=== PATIENT | female | born 1995 | race Caucasian/White ===

== ENCOUNTER 2024-03-29 17:32 | Emergency (ER) | payer BC, SELFPAY ==
[2024-03-29 17:35] VITALS: BP 140/101
[2024-03-29 17:45] VITALS: BMI 36.8
[2024-03-29 17:52] VITALS: BP 117/86
[2024-03-29] MEDS: DILAUDID 1 MG IV (17:53)
[2024-03-29] MEDS: ZOFRAN 4 MG IV (17:53)
[2024-03-29 18:01] LABS: % Basophils 0.3 % (0-2); % Eosinophils 1.7 % (0-6); % Immature Granulocytes 0.4 % (0-0.5); % Lymphocytes 18.6 % (20.5-51.1); % Monocytes 7.7 % (1.7-9.3); % Neutrophils 71.3 % (42.2-75.2); Absolute Eosinophils 0.2 10^3/uL (0-0.7); Absolute Immature Granulocytes 0.1 10^3/uL (0-0.05); Absolute Lymphocytes 2.4 10^3/uL (1.2-3.4); Absolute Neutrophils 9.3 10^3/uL (1.4-6.5); Hematocrit 39.2 % (37.0-47.0); Hemoglobin 13.5 g/dL (12.0-16.0); Mean Corp Hgb Conc. 34.4 g/dL (33.0-37.0); Mean Corpuscular Hgb 30.7 pg (27.0-31.0); Mean Corpuscular Volume 89.1 fL (81.0-99.0); Mean Platelet Volume 10.5 fL (7.4-10.4); Nucleated Red Blood Cells % 0 %; Platelet Count 326 10^3/uL (130-400); Red Cell Dist. Width 12.1 % (11.5-14.5)
[2024-03-29 18:02] LABS: Urine Albumin Negative (Neg - Trace); Urine Bilirubin Negative (Negative); Urine Character Clear (Clear); Urine Color Yellow; Urine Glucose Negative (Negative); Urine Ketone Negative (Negative); Urine Leukocyte 1+ (Negative); Urine Nitrite Negative (Negative); Urine Occult Blood Trace (Negative); Urine Specific Gravity 1.015 (<1.030); Urine Urobilinogen Negative (Neg - 1+)
[2024-03-29 18:09] LABS: Urine Bacteria Few (Negative)
[2024-03-29 18:20] LABS: ALT (SGPT) 13 U/L (0-35); AST (SGOT) 25 U/L (14-36); Albumin 4.6 g/dl (3.5-5.0); Alkaline Phosphatase 87 U/L (38-126); Blood Urea Nitrogen 18 mg/dl (7-17); Calcium 9.9 mg/dl (8.4-10.2); Carbon Dioxide 22 mmol/L (22-30); Chloride 102 mmol/L (98-107); Estimated Creatinine Clearance 73 ml/min; Glucose 93 mg/dl (70-99); Potassium 4.1 mmol/L (3.5-5.1); Sodium 140 mmol/L (135-145); Total Bilirubin 0.2 mg/dl (0.2-1.3); Total Protein 7.6 g/dl (6.3-8.2); eGFR > 60.00
[2024-03-29 18:28] LABS: HCG, Serum Qualitative Screen Negative
--- NOTE | 2024-03-29 18:53 | ED.GENMED ---
History of Present Illness
General
Chief Complaint: Flank Pain
Source: patient
Exam Limitations: none
Time Seen by Provider: 03/29/24 17:39
Nursing documentation reviewed up to this point in time: agreed with
History of Present Illness
History of Present Illness:
28-year-old female with history of kidney stones presents with right flank pain that started 6 days ago but went away and then came back today. She has taken several doses of exercising Tylenol, and the last 1 at 2:30 PM with no relief. She feels
nauseous but has not vomited. Denies fever/chills.
Past History
Past History
ED Past Medical History: Hypothyroidism, Other and Other (Previous kidney stone)
Social History
Tobacco: Non-smoker
Living: with family
Review of Systems
Review of Systems
Allergies reviewed?: Yes
All Other Systems: ROS reviewed and negative except as documented in HPI and ROS
Constitutional: Denies fever or chills
Respiratory: Denies trouble breathing
Cardiac: Denies chest pain
ABD/GI: Reports nausea; Denies abdominal pain, vomiting or diarrhea
: Reports flank pain (Right) and other (feels she is not emptying her bladder ); Denies dysuria, frequency or urgency
Musculoskeletal: Reports no symptoms
Skin: Reports no symptoms
Phy Exam
Physical Exam
Physical Exam:
GENERAL: No acute distress. A&Ox3.
CONSTITUTIONAL: Afebrile.
EYES: clear, conjunctivae normal
ENMT: moist mucus membranes
RESPIRATORY: Regular respirations, nonlabored, lungs clear.
CARDIOVASCULAR: Regular rate and rhythm, no murmurs, no rubs.
GI: Soft, nontender, normal BS. Mild right flank tenderness
MUSCULOSKELETAL: Moves with ease. Well perfused.
SKIN: Warm, dry, pink
PSYCH: Normal mood and affect. Well kept, interactive and appropriate
NEUROLOGIC: Awake, alert and oriented. No focal neurological deficits
Course
Orders/Labs/Results
Orders:
Orders
03/29/24 17:39
HYDROmorphone [Dilaudid] 1 mg IV NOW STA
Ondansetron Injectable [Zofran] 4 mg IV NOW STA
03/29/24 17:40
CT Abd/pel Without Iv Or Oral Urgent
Comment:
Reason For Exam: R flank pain, hx stones
03/29/24 17:51
Complete Blood Count/With Diff Urgent
Comprehensive Metabolic Panel Urgent
HCG, Serum Qualitative Screen Urgent
Comment: ADD ON
Urinalysis Reflex To Culture Urgent
Date Specimen was Collected: 03/29/24
Time Specimen was Collected: 17:48
Urine Microscopic Reflex Cult Urgent
Urine Culture Urgent
RAZ Source: U
Specimen Description:
Date Specimen was Collected: 03/29/24
Time Specimen was Collected: 17:48
03/29/24 18:08
Add On- LAB Urgent
Tests Added?: hcg qual
03/29/24 19:07
Ketorolac [Toradol] 15 mg IV NOW STA
03/29/24 21:31
Hydrocodone 5/APAP 325 [[place] 5/325] 1 tablet PO NOW STA
03/29/24 21:41
Tamsulosin [Flomax] 0.4 mg .ROUTE .STK-MED ONE
03/30/24 08:00
Tamsulosin [Flomax] 0.4 mg PO DAILY
Abnormal Lab Results
03/29/24
17:51
WBC 13.0 H 10^3/uL
(4.8-10.8)
MPV 10.5 H fL
(7.4-10.4)
Abs Immat Gran (auto) 0.1 H 10^3/uL
(0-0.05)
Absolute Neuts (auto) 9.3 H 10^3/uL
(1.4-6.5)
Absolute Monos (auto) 1.0 H 10^3/uL
(0.1-0.6)
Lymphocytes % 18.6 L %
(20.5-51.1)
BUN 18 H mg/dl
(7-17)
Creatinine 1.1 H mg/dL
(0.6-1.0)
Ur Occult Blood Reflex Trace A
(Negative)
Leukocyte Esterase Rfl 1+ A
(Negative)
Urine RBC 3-6 A /HPF
(0-2)
Urine Bacteria (Reflex) Few A
(Negative)
03/29/24 17:51
03/29/24 17:51
Vital Signs
Initial and Last Documented VS:
Initial Vital Signs
Temp Pulse Resp BP Pulse Ox
99 F 72 16 140/101 98
03/29/24 17:35 03/29/24 17:35 03/29/24 17:35 03/29/24 17:35 03/29/24 17:35
Last Documented Vital Signs
Temp Pulse Resp BP Pulse Ox
99 F 72 16 115/83 98
03/29/24 17:35 03/29/24 17:35 03/29/24 17:35 03/29/24 21:38 03/29/24 21:36
MDM/Problems Addressed
Differential Diagnosis Includes:
kidney stone, UTI, dehydration, pyelonephritis
MDM/Problems Addressed:
28-year-old female with history of kidney stones presents with right flank pain that started 6 days ago but went away and then came back today. She has taken several doses of exercising Tylenol, and the last 1 at 2:30 PM with no relief. She feels
nauseous but has not vomited. Denies fever/chills.
Afebrile, NAD
Post void bladder scan <10 ml
6:00 p.m.
CBC WBC 13.0
CMP normal
hCG negative
UA +1 leukocyte esterase, trace occult blood, 3-6 RBCs, 3-5 WBCs, few bacteria
6:30 p.m.
In to re evaluate after Dilaudid and Zofran. Nausea better, pain improving
8:20 p.m.
Radiology report read: IMPRESSION:
5 mm stone at the right ureterovesicular junction with associated moderate right-sided hydroureteronephrosis with perinephric edema.
9:00 p.m.
Pt feeling better pain 3/10, is comfortable going home.
Rx for Flomax and Vicodin sent to her pharmacy
*Critical Care Note
Total Time (30-74mins, 75-104mins- exclusive of procedures): Not Applicable
ED Attending Note
-
Portions of this chart may have been created with voice recognition software.� Occasional wrong word or��sound alike� substitutions may have occurred due to the inherent limitations of voice recognition software.
Discharge Plan
Departure
Patient Disposition: Home (Routine Discharge)
Date of Disposition: 03/29/24
Time of Disposition: 21:19
Patient with high blood pressure during this ER visit?: No
Condition: Good
Discharge Problem:
Calculus of distal right ureter
Instructions: Kidney Stones (DC), How to Strain Your Urine
Prescriptions:
New
tamsulosin [Flomax] 0.4 mg capsule
0.4 mg PO DAILY Qty: 5 0RF
hydrocodone-acetaminophen 5-325 mg tablet
1 tab PO Q6H PRN (Reason: pain) Qty: 7 0RF
No Action
levothyroxine 100 MCG tablet
100 mcg PO DAILY
Patient Comments:
Pt unsure of dosage
mesalamine 4 GM/60 ML enema
4 gm RC HS
acetaminophen [Tylenol Extra Strength] 500 MG tablet
1,000 mg PO Q6HPRN PRN (Reason: mild pain)
mesalamine [Apriso] 0.375 GM capsule,extended release 24hr
1.5 g PO DAILY
acetaminophen-codeine 1 TABLET tablet
1 tab PO Q4HPRN PRN (Reason: moderate flank pain/discomfort) 7 Days Qty: 15 0RF
tamsulosin 0.4 MG capsule
0.4 mg PO QPM 14 Days Qty: 14 0RF
Referrals:
Zen Romano MD [Active] - Call in 1-3 days for appt
Ernestine Fisher CRNP [Family Provider] -
Activity Restrictions/Additional Instructions:
As we discussed, I sent a prescription to your pharmacy for the Flomax and for [place] which is hydrocodone if needed for pain. Drink plenty of fluids.
Strain your urine and if you catch the stone put in a container provided and follow-up with the urologist
Return here immediately for fever, vomiting, worsening pain or feeling sicker in any way.
Interventions
Interventions:
*Risk Screen - Suicide Last Done: 03/29/24 17:46
*General Assessment Last Done: 03/29/24 17:46
*Neglect/Abuse Screening Last Done: 03/29/24 17:46
ED- Fall Risk Assessment Last Done: 03/29/24 17:47
*ED COVID-19 Vaccine History Last Done: 03/29/24 17:46
*Nursing Disposition Last Done: 03/29/24 21:51
[facility]-Djupmi-Xpgoitkhmz Assessment Last Done: 03/29/24 17:47
ED-Female Genitourinary Assessment Last Done: 03/29/24 17:47
Discharge Date and Time
Discharge Date/Time: 03/29/24 21:52
Print Language: THAI
[2024-03-29 19:00] VITALS: BP 104/71
[2024-03-29] MEDS: TORADOL 15 MG IV (19:22)
[2024-03-29 21:38] VITALS: BP 115/83
[2024-03-29] MEDS: FLOMAX 0.4 MG PO (21:44)
[2024-03-29] MEDS: NORCO 5/325 1 TABLET PO (21:44)
== END 2024-03-29 21:52 | disposition home or self-care (01) ==
LOC: EMR 17:32
PROVIDERS: Registered Nurse; EMERGENCY PHYSICIAN Emergency Medicine; FAMILY PHYSICIAN Nurse Practitioner Family
DX: N20.1 Calculus of ureter (principal); E03.9 Hypothyroidism, unspecified; Z87.442 Personal history of urinary calculi
CPT/HCPCS: 99284; 96374; 96375; 74176; 80053; 81003; 81015; 84703; 85025; 87086